=== PATIENT | female | born 1940 | race Hispanic/Latino ===

== ENCOUNTER 2017-08-28 11:41 | Emergency (ER) | payer OTHER, MEDICARE ==
[~2017-08-28 11:41] MED LIST: ALBU2.5V2 IH; ALBU8.5H8 IH; AMLO5TAB2 PO; CARV3.12 PO; CYCL30DR OP; FLUT1BLS IH; MIRT15TA6 PO; MONT10TA24 PO; MULT-1192 PO; RANI-257 PO; TRAM50TA4 PO
[2017-08-28 13:10] LABS: BASOPHILS % (AUTO) 0.4 % (0.0-5.0); EOSINOPHILS % (AUTO) 0.5 % (0.0-8.0); HEMATOCRIT 33.9 % (36-48); LYMPHOCYTES % (AUTO) 6.5 % (21.0-51.0); MEAN CORPUSCULAR HEMOGLOBIN 33.1 pg (27.0-33.0); MEAN CORPUSCULAR HGB CONC 34.1 g/dL (32.0-36.0); MEAN CORPUSCULAR VOLUME 97.1 fL (79-99); MONOCYTES % (AUTO) 3.8 % (3.0-13.0); NEUTROPHILS % (AUTO) 88.8 % (40.0-77.0); PLATELET COUNT (AUTO) 223 K/uL (130-400); RED BLOOD CELL COUNT(AUTO) 3.49 MIL/uL (4.00-5.50); RED CELL DISTRIBUTION WIDTH 12.6 % (11.0-15.5); WHITE BLOOD COUNT (AUTO) 11.4 K/uL (4.8-10.8)
[2017-08-28 13:25] LABS: ALBUMIN 3.2 g/dL (3.5-5.0); BILIRUBIN,TOTAL 0.5 mg/dL (0.2-1.0); TOTAL PROTEIN, SERUM 7.3 g/dL (6.0-8.3)
[2017-08-28 13:53] LABS: APPEARANCE,URINE CLEAR (CLEAR); BILIRUBIN,URINE NEGATIVE (NEGATIVE); COLOR,URINE YELLOW (YELLOW); GLUCOSE, URINE (UA) NEGATIVE (NEGATIVE); KETONES,URINE NEGATIVE (NEGATIVE); LEUKOCYTE ESTERASE ,URINE NEGATIVE (NEGATIVE); NITRATE,URINE NEGATIVE (NEGATIVE); OCCULT BLOOD,URINE NEGATIVE (NEGATIVE); PROTEIN,URINE NEGATIVE (NEGATIVE); UROBILINOGEN,URINE 0.2 mg/dL (0.2-1.0)
[2017-08-28] MEDS ORDERED: METRONIDAZOLE 500MG/100ML BAG 100 ML ONE (15:55)
[2017-08-28] MEDS ORDERED: LEVOFLOXACIN 750 MG/D5W 150 ML 150 ML ONE (16:42)
== END 2017-08-28 18:12 | disposition home or self-care (01) ==
LOC: EDH 11:41
DX: K57.92 Diverticulitis of intestine, part unspecified, without perforation or abscess without bleeding (principal); I10 Essential (primary) hypertension; E78.5 Hyperlipidemia, unspecified; J45.909 Unspecified asthma, uncomplicated; Z90.49 Acquired absence of other specified parts of digestive tract
CPT/HCPCS: 36415; 71045; 74176; 80053; 81003; 85025; 87804 ×2; 96365; 96367; 99285; J1956; J3490

== ENCOUNTER 2017-08-29 23:48 | Observation (INO) | payer OTHER, MEDICARE ==
[~2017-08-29] VITALS: Ht 157.5 cm; Wt 56.7 kg
[2017-08-30 00:35] LABS: BASOPHILS % (AUTO) 0.3 % (0.0-5.0); EOSINOPHILS % (AUTO) 1.2 % (0.0-8.0); HEMATOCRIT 33.7 % (36-48); LYMPHOCYTES % (AUTO) 10.2 % (21.0-51.0); MEAN CORPUSCULAR HEMOGLOBIN 33.6 pg (27.0-33.0); MEAN CORPUSCULAR HGB CONC 34.8 g/dL (32.0-36.0); MEAN CORPUSCULAR VOLUME 96.7 fL (79-99); MONOCYTES % (AUTO) 6.4 % (3.0-13.0); NEUTROPHILS % (AUTO) 81.9 % (40.0-77.0); PLATELET COUNT (AUTO) 183 K/uL (130-400); RED BLOOD CELL COUNT(AUTO) 3.48 MIL/uL (4.00-5.50); RED CELL DISTRIBUTION WIDTH 12.6 % (11.0-15.5); WHITE BLOOD COUNT (AUTO) 10.4 K/uL (4.8-10.8)
[2017-08-30 00:42] LABS: CREATININE 1.3 mg/dL (0.5-1.5); POTASSIUM 3.8 mmol/L (3.5-5.1)
[2017-08-30 00:45] LABS: APPEARANCE,URINE Clear (CLEAR); BILIRUBIN,URINE Negative (NEGATIVE); COLOR,URINE Yellow (YELLOW); GLUCOSE, URINE (UA) Negative (NEGATIVE); KETONES,URINE Negative (NEGATIVE); LEUKOCYTE ESTERASE ,URINE Negative (NEGATIVE); NITRATE,URINE Negative (NEGATIVE); OCCULT BLOOD,URINE Negative (NEGATIVE); PROTEIN,URINE Negative (NEGATIVE); UROBILINOGEN,URINE 0.2 mg/dL (0.2-1.0)
[2017-08-30 00:47] LABS: ALBUMIN 3.4 g/dL (3.5-5.0); BILIRUBIN,DIRECT 0.1 mg/dL (0.0-0.3); BILIRUBIN,TOTAL 0.6 mg/dL (0.2-1.0); TOTAL PROTEIN, SERUM 7.5 g/dL (6.0-8.3)
[2017-08-30] MEDS ORDERED: SODIUM CHLORIDE 0.9% 1000ML 1,000 ML IV ONE (01:39)
[2017-08-30] MEDS ORDERED: ONDANSETRON HCL 4 MG/2 ML VIAL ONE ×2 (01:39→03:32)
[2017-08-30] MEDS ORDERED: LIDOCAINE HCL 2% VISCOUS 15 ML UDCUP ONE (01:54)
[2017-08-30] MEDS ORDERED: MAGNESIUM HYDROXIDE 30 ML/UDCUP ONE (01:54)
[2017-08-30] MEDS ORDERED: METRONIDAZOLE 500MG/100ML BAG 100 ML ONE (04:34)
[2017-08-30 05:30] VITALS: BP 194/85
[2017-08-30 05:39] LABS: HEMATOCRIT 32.6 % (36-48); MEAN CORPUSCULAR HEMOGLOBIN 33.7 pg (27.0-33.0); MEAN CORPUSCULAR HGB CONC 35.1 g/dL (32.0-36.0); PLATELET COUNT (AUTO) 225 K/uL (130-400); RED BLOOD CELL COUNT(AUTO) 3.39 MIL/uL (4.00-5.50); RED CELL DISTRIBUTION WIDTH 12.5 % (11.0-15.5); WHITE BLOOD COUNT (AUTO) 8.4 K/uL (4.8-10.8)
[2017-08-30 05:44] LABS: CREATININE 1.1 mg/dL (0.5-1.5); POTASSIUM 3.9 mmol/L (3.5-5.1)
[2017-08-30] MEDS: SODIUM CHLORIDE 0.9% 1000ML 1,000 ML IV SCH ×2 (05:58→19:09)
[2017-08-30] MEDS ORDERED: MORPHINE SULFATE 2 MG/ML 1ML SYG IVP PRN (06:00)
[2017-08-30] MEDS ORDERED: ONDANSETRON HCL 4 MG/2 ML VIAL IVP PRN (06:00)
[2017-08-30] MEDS ORDERED: PHARMACY COMMUNICATION MISC SCH (06:00)
[2017-08-30] MEDS ORDERED: METRONIDAZOLE 500MG/100ML BAG 100 ML IVPB SCH (06:00)
[2017-08-30] MEDS ORDERED: FLU VACC QS2017-18 36MOS UP/PF 60 MCG/0.5 ML ML IM SCH (06:30)
[2017-08-30] MEDS ORDERED: POTASSIUM CHLORIDE 20MEQ/100ML 100 ML IV PRN (06:45)
[2017-08-30] MEDS ORDERED: POTASSIUM CHLORIDE 20 MEQ ERTAB PO PRN (06:45)
[2017-08-30] MEDS ORDERED: LIDOCAINE HCL-MPF 1% 2ML VIAL IVP PRN (06:45)
[2017-08-30] MEDS ORDERED: MEROPENEM 500 MG VIAL IVP SCH ×2 (06:45)
[2017-08-30] MEDS ORDERED: POTASSIUM CHLORIDE 10% ELIXIR 20 MEQ/15 ML UDCUP PO PRN (06:45)
[2017-08-30 07:00] VITALS: BP 157/83
[2017-08-30] MEDS: FAMOTIDINE/PF 20 MG/2 ML VIAL IV SCH (09:13)
[2017-08-30 11:00] VITALS: BP 171/77
[2017-08-30] MEDS ORDERED: MEROPENEM 500MG+NS 50ML 50 ML IV SCH (14:00)
[2017-08-30] MEDS: MEROPENEM 500 MG VIAL IVP SCH ×2 (14:19→20:22)
[2017-08-30 17:58] VITALS: BP 147/71
[2017-08-30 19:10] VITALS: BP 178/78
[2017-08-30] MEDS ORDERED: HYDRALAZINE HCL 20 MG/ML VIAL IV PRN (20:45)
[2017-08-30 23:47] VITALS: BP 132/59
[2017-08-31] MEDS: SODIUM CHLORIDE 0.9% 1000ML 1,000 ML IV SCH (00:21)
[2017-08-31 04:04] VITALS: BP 139/65
[2017-08-31] MEDS: MEROPENEM 500 MG VIAL IVP SCH ×2 (06:06→15:27)
[2017-08-31] MEDS: FAMOTIDINE/PF 20 MG/2 ML VIAL IV SCH (09:04)
[2017-08-31] MEDS ORDERED: LOSA100T29 PO (09:12)
[2017-08-31] MEDS ORDERED: ALBU2.5V2 IH (09:12)
[2017-08-31] MEDS ORDERED: MIRT30TA6 PO (09:12)
[2017-08-31 09:56] VITALS: BP 146/71
[2017-08-31] MEDS ORDERED: AMOX-426 PO (10:28)
[2017-08-31 13:21] VITALS: BP 130/66
== END 2017-08-31 17:42 | disposition home or self-care (01) ==
LOC: EDH 23:48 → EDHIP 08-30 04:19 → 3DH 08-30 04:35
PROVIDERS: ADMIT Family Medicine; ATTEND Family Medicine
DX: K57.32 Diverticulitis of large intestine without perforation or abscess without bleeding (principal); I10 Essential (primary) hypertension; K21.9 Gastro-esophageal reflux disease without esophagitis; J45.909 Unspecified asthma, uncomplicated; E78.5 Hyperlipidemia, unspecified; Z82.49 Family history of ischemic heart disease and other diseases of the circulatory system; Z82.5 Family history of asthma and other chronic lower respiratory diseases; Z90.49 Acquired absence of other specified parts of digestive tract
CPT/HCPCS: 36415; 80048 ×2; 80076; 81003; 82550; 83690; 84484; 85025; 85027; 93005; 96361 ×2; 96374; 97116; 97161; 99285; A4218 ×4; A4510; G0378 ×37; G8978; G8979; G8980; G8981; G8982; G8983; J0360; J2185 ×4; J2405 ×2; J3490 ×3; J7030 ×3

== ENCOUNTER 2018-04-10 04:39 | Emergency (ER) | payer OTHER, MEDICARE ==
[~2018-04-10 04:39] MED LIST changes: -ALBU8.5H8 IH; -AMLO5TAB2 PO; +AMOX-426 PO; -CARV3.12 PO; +LOSA100T20 PO; -MIRT15TA6 PO; +MIRT30TA6 PO
[2018-04-10] MEDS ORDERED: ORPHENADRINE CITRATE 30 MG/ML ML ONE (05:40)
[2018-04-10] MEDS ORDERED: DEXAMETHASONE SOD PHOSPHATE 4 MG/ML 1ML VIAL ONE (05:40)
[2018-04-10] MEDS ORDERED: MORPHINE SULFATE 4 MG/1ML SYG ONE (05:41)
== END 2018-04-10 06:48 | disposition home or self-care (01) ==
LOC: EDH 04:39
DX: M54.41 Lumbago with sciatica, right side (principal); M16.11 Unilateral primary osteoarthritis, right hip; E78.5 Hyperlipidemia, unspecified; I10 Essential (primary) hypertension; F32.9 Major depressive disorder, single episode, unspecified; Z88.8 Allergy status to other drugs, medicaments and biological substances; Z90.49 Acquired absence of other specified parts of digestive tract; Z90.710 Acquired absence of both cervix and uterus; Z98.890 Other specified postprocedural states
CPT/HCPCS: 96372 ×3; 99284; J1100; J2270; J2360

== ENCOUNTER 2018-05-08 10:21 | Emergency (ER) | payer OTHER, MEDICARE ==
[2018-05-08 11:21] LABS: BASOPHILS % (AUTO) 0.7 % (0.0-5.0); EOSINOPHILS % (AUTO) 1.3 % (0.0-8.0); HEMATOCRIT 30.4 % (36-48); LYMPHOCYTES % (AUTO) 11.7 % (21.0-51.0); MEAN CORPUSCULAR HGB CONC 34.8 g/dL (32.0-36.0); MEAN CORPUSCULAR VOLUME 97.6 fL (79-99); MONOCYTES % (AUTO) 5.5 % (3.0-13.0); NEUTROPHILS % (AUTO) 80.8 % (40.0-77.0); PLATELET COUNT (AUTO) 180 K/uL (130-400); RED BLOOD CELL COUNT(AUTO) 3.12 MIL/uL (4.00-5.50); RED CELL DISTRIBUTION WIDTH 12.6 % (11.0-15.5); WHITE BLOOD COUNT (AUTO) 6.6 K/uL (4.8-10.8)
[2018-05-08 11:27] LABS: CREATININE 0.9 mg/dL (0.5-1.5)
[2018-05-08 11:31] LABS: ALBUMIN 3.1 g/dL (3.5-5.0); BILIRUBIN,DIRECT 0.1 mg/dL (0.0-0.3); BILIRUBIN,TOTAL 0.5 mg/dL (0.2-1.0); TOTAL PROTEIN, SERUM 6.2 g/dL (6.0-8.3)
[2018-05-08 12:17] LABS: APPEARANCE,URINE Clear (CLEAR); BILIRUBIN,URINE Negative (NEGATIVE); COLOR,URINE Yellow (YELLOW); GLUCOSE, URINE (UA) Negative (NEGATIVE); KETONES,URINE Trace mg/dL (NEGATIVE); LEUKOCYTE ESTERASE ,URINE Negative (NEGATIVE); NITRATE,URINE Negative (NEGATIVE); OCCULT BLOOD,URINE Negative (NEGATIVE); PROTEIN,URINE Negative (NEGATIVE); UROBILINOGEN,URINE 0.2 mg/dL (0.2-1.0)
[2018-05-08 12:34] LABS: BACTERIA,URINE Rare /HPF (None Seen); RBC,URINE None Seen /HPF (0-1); SQUAMOUS EPITHELIAL CELL,UR Rare /HPF (0-2); WBC,URINE None Seen /HPF (0-1)
== END 2018-05-08 13:40 | disposition home or self-care (01) ==
LOC: EDH 10:21
DX: F32.9 Major depressive disorder, single episode, unspecified (principal); R53.83 Other fatigue; I10 Essential (primary) hypertension; E78.5 Hyperlipidemia, unspecified; Z98.890 Other specified postprocedural states
CPT/HCPCS: 36415; 71045; 80048; 80076; 81001; 82550; 84484; 85025; 87804; 93005

== ENCOUNTER 2019-01-24 10:27 | Day surgery (SDC) | payer OTHER, MEDICARE ==
[2019-01-23 13:52] VITALS: BP 160/80
[2019-01-23 13:58] LABS: EOSINOPHILS % (AUTO) 2.5 % (0.0-8.0); HEMATOCRIT 36.6 % (36-48); LYMPHOCYTES % (AUTO) 12.8 % (21.0-51.0); MEAN CORPUSCULAR HEMOGLOBIN 32.7 pg (27.0-33.0); MEAN CORPUSCULAR HGB CONC 32.9 g/dL (32.0-36.0); MEAN CORPUSCULAR VOLUME 99.4 fL (79-99); MONOCYTES % (AUTO) 6.9 % (3.0-13.0); NEUTROPHILS % (AUTO) 76.8 % (40.0-77.0); PLATELET COUNT (AUTO) 222 K/uL (130-400); RED BLOOD CELL COUNT(AUTO) 3.69 MIL/uL (4.00-5.50); RED CELL DISTRIBUTION WIDTH 12.9 % (11.0-15.5); WHITE BLOOD COUNT (AUTO) 6.5 K/uL (4.8-10.8)
[2019-01-23 14:07] LABS: CREATININE 1.1 mg/dL (0.5-1.5); POTASSIUM 4.5 mmol/L (3.5-5.1)
[~2019-01-24] VITALS: Ht 152.4 cm; Wt 51.3 kg
[2019-01-24] VITALS (18 sets, daily range): BP systolic 127–180; BP diastolic 49–84
[2019-01-24] MEDS: CEFAZOLIN SODIUM 1 GM VIAL IVP ONE ×2 (08:00→16:24)
[~2019-01-24 10:27] MED LIST changes: -AMOX-426 PO; -CYCL30DR OP; +ERGO400C PO; +LACTATED RINGERS 1000ML 1,000 ML IV SCH; -LOSA100T20 PO; +LOSA100T58 PO; -MONT10TA24 PO; -MULT-1192 PO; -RANI-257 PO; +RANI-379 PO
[2019-01-24] MEDS ORDERED: CEFAZOLIN SODIUM 1 GM VIAL ONE (11:04)
[2019-01-24] MEDS ORDERED: ROCURONIUM 10MG/1ML SYR 10 MG/ML ML ONE (13:14)
[2019-01-24] MEDS ORDERED: SUCCINYLCHOLINE 200MG/10ML SYR ONE (13:14)
[2019-01-24] MEDS ORDERED: PROPOFOL 10 MG/ML 20ML VIAL IV ONE (13:14)
[2019-01-24] MEDS ORDERED: LIDOCAINE PF 2% 5ML ABBOJECT ONE (13:14)
[2019-01-24] MEDS ORDERED: FENTANYL CITRATE PF 50 MCG/1 ML 2ML VIAL ONE ×2 (13:15→15:32)
[2019-01-24] MEDS ORDERED: ROPIVACAINE 0.5% 5MG/ML 30ML IJ ONE (13:17)
[2019-01-24] MEDS ORDERED: EPINEPHRINE 1 MG/ML 30ML VIAL IJ ONE (15:35)
[2019-01-24] MEDS ORDERED: ONDANSETRON HCL 4 MG/2 ML VIAL ONE (16:48)
[2019-01-24] MEDS ORDERED: NEOSTIGMINE 5MG/5ML SYR IV ONE (16:57)
[2019-01-24] MEDS ORDERED: GLYCOPYRROLATE 1 MG/5 ML SYRINGE ONE (16:57)
[2019-01-24] MEDS ORDERED: HYDRALAZINE HCL 20 MG/ML VIAL ONE (17:44)
--- NOTE | 2019-01-24 18:20 | NUR ---
INCISION CARE ASKED DR. DE GUZMAN RE: DRESSING. PER DR. DE GUZMAN, KEEP DRESSING DRY AND CLEAN, DO NOT REMOVE.
--- NOTE | 2019-01-24 18:26 | NUR ---
RECEIVE PT RECEIVED FROM PACU VIA STRETCHER AWAKE ALERT ORIENTED X3. PT STABLE. RIGHT SHOULDER DRESSING DRY AND INTACT, NO BLEEDING NOTED, SITE NO SWELLING NO REDNESS NOTED. ICE PACK APPLIED TO SITE. RIGHT SHOULDER SLING/IMMOBILIZER IN PLACE, RIGHT ARM SENSATION INTACT, VERY MINIMAL MOVEMENTS NOTED TO FINGERS,RT, CAPILLARY REFILLS BRISK, PULSES PRESENT. PT KEPT ON SEMI VALENCIA'S POSITION. CALL GREEN WITHIN REACH, WILL CALL FOR TO COME IN TO ROOM.
--- NOTE | 2019-01-24 19:10 | NUR ---
DISCHARGE PT DISCHARGED VIA WHEELCHAIR WITH . PT STABLE. NO COMPLAINTS MADE. NOT IN ANY APPARENT DISTRESS. TOLERATED ORAL FLUIDS WELL. DRESSING TO RIGHT SHOULDER REMAINS DRY AND INTACT, NO BLEEDING, NO SWELLING NOTED. SLING RT ARM IN PLACE. DISCHARGE INSTRUCTIONS GIVEN TO , VERBALIZED UNDERSTANDING.
== END 2019-01-24 19:10 | disposition home or self-care (01) ==
LOC: DAH 10:27
PROVIDERS: ATTEND Orthopaedic Surgery
DX: M75.101 Unspecified rotator cuff tear or rupture of right shoulder, not specified as traumatic (principal); Z90.49 Acquired absence of other specified parts of digestive tract; Z98.890 Other specified postprocedural states; Z90.710 Acquired absence of both cervix and uterus; Z88.8 Allergy status to other drugs, medicaments and biological substances; J45.909 Unspecified asthma, uncomplicated; K21.9 Gastro-esophageal reflux disease without esophagitis; K59.00 Constipation, unspecified; M19.90 Unspecified osteoarthritis, unspecified site; R53.1 Weakness; I11.9 Hypertensive heart disease without heart failure
CPT/HCPCS: 23130; 23412; 36415; 71045; 80048; 85025; 93005; A4452; A4649 ×4; A4930; A6223; C1713 ×2; J0171; J0330; J0360; J0690; J2001; J2405; J2704; J2710; J2795; J3010; J3490; J7030; J7120

== ENCOUNTER 2019-01-25 18:24 | Emergency (ER) | payer OTHER, MEDICARE ==
[~2019-01-25 18:24] MED LIST changes: -LACTATED RINGERS 1000ML 1,000 ML IV SCH
[2019-01-25 18:57] LABS: BASOPHILS % (AUTO) 0.5 % (0.0-5.0); EOSINOPHILS % (AUTO) 1.1 % (0.0-8.0); HEMATOCRIT 36.3 % (36-48); LYMPHOCYTES % (AUTO) 10.1 % (21.0-51.0); MEAN CORPUSCULAR HEMOGLOBIN 32.5 pg (27.0-33.0); MEAN CORPUSCULAR HGB CONC 33.1 g/dL (32.0-36.0); MEAN CORPUSCULAR VOLUME 98.2 fL (79-99); MONOCYTES % (AUTO) 7.5 % (3.0-13.0); NEUTROPHILS % (AUTO) 80.8 % (40.0-77.0); PLATELET COUNT (AUTO) 216 K/uL (130-400); RED BLOOD CELL COUNT(AUTO) 3.69 MIL/uL (4.00-5.50); WHITE BLOOD COUNT (AUTO) 11.6 K/uL (4.8-10.8)
[2019-01-25 19:13] LABS: CARBON DIOXIDE 30 mmol/L (21-32); CHLORIDE 99 mmol/L (101-111); CREATININE 1.3 mg/dL (0.5-1.5); GLOMERULAR FILTR. RATE CALC 42 mL/min (>60); GLUCOSE,RANDOM 110 mg/dL (70-105); SODIUM SERUM 135 mmol/L (136-145); UREA NITROGEN, BLOOD 35 mg/dL (7-18)
[2019-01-25 19:17] LABS: ALANINE AMINOTRANSFERASE 21 U/L (12-78); ALBUMIN 3.6 g/dL (3.5-5.0); ASPARTATE AMINOTRANSFERASE 23 U/L (10-37); BILIRUBIN,TOTAL 0.3 mg/dL (0.2-1.0); CREATINE KINASE, TOTAL 126 U/L (21-232); LIPASE 166 U/L (114-286); TOTAL PROTEIN, SERUM 7.6 g/dL (6.0-8.3)
[2019-01-25 19:20] LABS: CRP QUANTITATIVE < 2.00 mg/L (0.00-9.0)
[2019-01-25 19:29] LABS: INR 0.93 (0.85-1.15); PARTIAL THROMBOPLASTIN TIME 27.3 SEC (26.3-35.5); PROTHROMBIN TIME 9.8 SEC (9.6-11.6)
[2019-01-25] MEDS ORDERED: KETOROLAC TROMETHAMINE 15MG/ML ONE (20:02)
[2019-01-25 20:03] LABS: ERYTHROCYTE SEDIMENTATION RATE 26 MM/HR (0-30)
[2019-01-25] MEDS ORDERED: SODIUM CHLORIDE 0.9% 1000ML 1,000 ML IV ONE (20:03)
[2019-01-25 21:50] LABS: APPEARANCE,URINE Clear (CLEAR); BILIRUBIN,URINE Negative (NEGATIVE); COLOR,URINE Yellow (YELLOW); GLUCOSE, URINE (UA) Negative (NEGATIVE); KETONES,URINE Negative (NEGATIVE); LEUKOCYTE ESTERASE ,URINE Negative (NEGATIVE); NITRATE,URINE Negative (NEGATIVE); OCCULT BLOOD,URINE Negative (NEGATIVE); PH,URINE 5.5 (5.0-8.0); PROTEIN,URINE Negative (NEGATIVE); UROBILINOGEN,URINE 0.2 mg/dL (0.2-1.0)
== END 2019-01-25 22:33 | disposition home or self-care (01) ==
LOC: EDH 18:24
DX: S46.811A Strain of other muscles, fascia and tendons at shoulder and upper arm level, right arm, initial encounter (principal); I10 Essential (primary) hypertension; R42 Dizziness and giddiness; X58.XXXA Exposure to other specified factors, initial encounter; Y93.89 Activity, other specified; Y92.89 Other specified places as the place of occurrence of the external cause; Y99.8 Other external cause status
CPT/HCPCS: 36415; 71045; 73020; 80053; 81003; 82550; 83605; 83690; 84484; 85025; 85610; 85651; 85730; 86140; 87040 ×2; 93005; 96361; 96374; 99285; J1885; J7030

== ENCOUNTER 2019-01-26 11:15 | Observation (INO) | payer OTHER, MEDICARE ==
[~2019-01-26] VITALS: Ht 149.9 cm; Wt 45.4 kg
[2019-01-26] MEDS ORDERED: SODIUM CHLORIDE 0.9% 1000ML 1,000 ML IV ONE (12:54)
[2019-01-26 12:57] LABS: INR 0.9 (0.85-1.15); PARTIAL THROMBOPLASTIN TIME 29.4 SEC (26.3-35.5); PROTHROMBIN TIME 9.5 SEC (9.6-11.6)
[2019-01-26 12:59] LABS: CREATININE 1.1 mg/dL (0.5-1.5); POTASSIUM 3.7 mmol/L (3.5-5.1)
[2019-01-26 13:03] LABS: ALBUMIN 3.2 g/dL (3.5-5.0); BILIRUBIN,DIRECT 0.1 mg/dL (0.0-0.3); BILIRUBIN,TOTAL 0.4 mg/dL (0.2-1.0); TOTAL PROTEIN, SERUM 7.4 g/dL (6.0-8.3)
[2019-01-26 13:05] LABS: BASOPHILS % (AUTO) 0.2 % (0.0-5.0); EOSINOPHILS % (AUTO) 0.5 % (0.0-8.0); HEMATOCRIT 35.8 % (36-48); LYMPHOCYTES % (AUTO) 4.2 % (21.0-51.0); MEAN CORPUSCULAR HEMOGLOBIN 33.1 pg (27.0-33.0); MEAN CORPUSCULAR HGB CONC 33.7 g/dL (32.0-36.0); MEAN CORPUSCULAR VOLUME 98.2 fL (79-99); MONOCYTES % (AUTO) 7.5 % (3.0-13.0); NEUTROPHILS % (AUTO) 87.6 % (40.0-77.0); PLATELET COUNT (AUTO) 201 K/uL (130-400); RED BLOOD CELL COUNT(AUTO) 3.64 MIL/uL (4.00-5.50); WHITE BLOOD COUNT (AUTO) 9.7 K/uL (4.8-10.8)
[2019-01-26 14:03] LABS: APPEARANCE,URINE Clear (CLEAR); BILIRUBIN,URINE Negative (NEGATIVE); COLOR,URINE Yellow (YELLOW); GLUCOSE, URINE (UA) Negative (NEGATIVE); KETONES,URINE Negative (NEGATIVE); LEUKOCYTE ESTERASE ,URINE Negative (NEGATIVE); NITRATE,URINE Negative (NEGATIVE); OCCULT BLOOD,URINE Negative (NEGATIVE); PH,URINE 6.5 (5.0-8.0); PROTEIN,URINE Negative (NEGATIVE); UROBILINOGEN,URINE 0.2 mg/dL (0.2-1.0)
--- NOTE | 2019-01-26 16:16 | NUR ---
REPORT RECEIVED FROM SABINA RAMACHANDRAN (ED). PATIENT ADMITTED UNDER DR. LOPEZ'S SERVICES FOR S/P FALL AND GENERALIZED WEAKNESS. DR. DE GUZMAN CONSULTED. PATIENT S/P RIGHT ROTATOR CUFF REPAIR BY DR. DE GUZMAN ON 01/24/19. PATIENT REFUSES TO WEAR ABDUCTION PILLOW TO RIGHT ARM. PATIENT WITH C/O FEVER AND HYPERTENSION. PER MADIE, DR. YEPEZ SPOKE TO DR. DE GUZMAN AND IS AWARE OF CONSULT. PATIENT STABLE AT THIS TIME.
[2019-01-26] MEDS ORDERED: SODIUM CHLORIDE 0.9% 1000ML 1,000 ML IV SCH (16:45)
[2019-01-26] MEDS ORDERED: ACETAMINOPHEN 325 MG TAB PO PRN (16:45)
[2019-01-26] MEDS ORDERED: ONDANSETRON HCL 4 MG/2 ML VIAL IVP PRN (16:45)
[2019-01-26 17:30] VITALS: BP 162/77
[2019-01-26] MEDS: TRAMADOL HCL 50 MG TABLET PO PRN (19:01)
[2019-01-26 19:30] VITALS: BP 172/79
[2019-01-26] MEDS ORDERED: MORPHINE SULFATE 2 MG/ML 1ML SYG IVP PRN (20:30)
[2019-01-26] MEDS ORDERED: ZOSYN 3.375GM+NS 50ML 50 ML IV SCH (21:00)
[2019-01-27 00:10] VITALS: BP 161/77
[2019-01-27 04:30] VITALS: BP 177/79
[2019-01-27 07:30] VITALS: BP 163/87
[2019-01-27] MEDS: TRAMADOL HCL 50 MG TABLET PO PRN (07:42)
[2019-01-27 11:00] VITALS: BP 170/88
--- NOTE | 2019-01-27 12:23 | NUR ---
DISCHARGE PATIENT GIVEN DISCHARGE INSTRUCTIONS VIA TEACH BACK. 20G PIV TO LAC DISCONTINUED WITH TIP INTACT. NO RX GIVEN. PATIENT TO KEEP FOLLOW UP APPOINTMENT WITH PCP FOR NEW REFERRAL IN ORDER TO FOLLOW UP WITH DR. DE GUZMAN IN 2 WEEKS. PATIENT STABLE AT THIS TIME. PATIENT WHEELED DOWNSTAIRS TO LOBBY BY MINO DAVIS ACCOMPANIED BY SPOUSE.
== END 2019-01-27 12:30 | disposition home or self-care (01) ==
LOC: EDH 11:15 → EDHIP 16:05 → INTOOBSV 16:05 → OBSVTOIN 16:05 → 3BH 16:56
PROVIDERS: ADMIT Internal Medicine Critical Care Medicine; ATTEND Internal Medicine Critical Care Medicine
DX: R53.1 Weakness (principal); I10 Essential (primary) hypertension; Z79.899 Other long term (current) drug therapy; Z79.51 Long term (current) use of inhaled steroids
CPT/HCPCS: 36415; 71045; 80048; 80076; 82550; 83605; 83690; 84484; 85025; 85610; 85730; 87040; 87804 ×2; 93005; 96365; 96366; 96375; 99285; G0378 ×20; J2543 ×2; J7030 ×2; J0171; J0330; J0360; J0690; J2001; J2405; J2704; J2710; J2795; J3010; J3490; J7120

== ENCOUNTER 2020-10-30 10:57 | Emergency (ER) | payer OTHER, MEDICARE ==
[2020-10-30 11:41] LABS: BASOPHILS % (AUTO) 0.8 % (0.0-5.0); EOSINOPHILS % (AUTO) 4.3 % (0.0-8.0); LYMPHOCYTES % (AUTO) 11.6 % (21.0-51.0); MEAN CORPUSCULAR HEMOGLOBIN 32.2 pg (27.0-33.0); MEAN CORPUSCULAR HGB CONC 33.3 g/dL (32.0-36.0); MEAN CORPUSCULAR VOLUME 96.5 fL (79-99); PLATELET COUNT (AUTO) 220 K/uL (130-400); RED BLOOD CELL COUNT(AUTO) 3.73 MIL/uL (4.00-5.50); RED CELL DISTRIBUTION WIDTH 12.8 % (11.0-15.5); WHITE BLOOD COUNT (AUTO) 7.8 K/uL (4.8-10.8)
[2020-10-30] MEDS ORDERED: ALBUTEROL SULFATE 0.083% 2.5 MG/3 ML INH IH ONE (11:52)
[2020-10-30 11:55] LABS: CREATININE 1.2 mg/dL (0.5-1.5); POTASSIUM 4.4 mmol/L (3.5-5.1)
[2020-10-30 12:01] LABS: ALBUMIN 3.6 g/dL (3.5-5.0); BILIRUBIN,TOTAL 0.4 mg/dL (0.2-1.0)
[2020-10-30 15:19] LABS: APPEARANCE,URINE Clear (CLEAR); BILIRUBIN,URINE Negative (NEGATIVE); COLOR,URINE Yellow (YELLOW); GLUCOSE, URINE (UA) Negative (NEGATIVE); KETONES,URINE 15 mg/dL (NEGATIVE); LEUKOCYTE ESTERASE ,URINE Trace (NEGATIVE); NITRATE,URINE Negative (NEGATIVE); OCCULT BLOOD,URINE Negative (NEGATIVE); PROTEIN,URINE Negative (NEGATIVE)
[2020-10-30 15:42] LABS: BACTERIA,URINE Rare /HPF (None Seen); MUCUS,URINE Few LPF (None Seen); SQUAMOUS EPITHELIAL CELL,UR Few /HPF (0-2)
== END 2020-10-30 18:05 | disposition home or self-care (01) ==
LOC: EDH 10:57
DX: G93.3 Postviral and related fatigue syndromes (principal); I10 Essential (primary) hypertension; E78.5 Hyperlipidemia, unspecified; M81.0 Age-related osteoporosis without current pathological fracture; F32.9 Major depressive disorder, single episode, unspecified; Z88.1 Allergy status to other antibiotic agents; Z98.890 Other specified postprocedural states
CPT/HCPCS: 36415; 71045; 80053; 81001; 83605; 85025; 87040; 93005; 94640

== ENCOUNTER 2023-08-31 11:05 | Emergency (ER) | payer OTHER, MEDICARE ==
[~2023-08-31] VITALS: Ht 154.9 cm; Wt 62.6 kg
[~2023-08-31 11:05] MED LIST changes: +DICL20GE TP; -LOSA100T58 PO; +LOSA100T59 PO; +MIRT-93 PO; -MIRT30TA6 PO; +PRED20TA3 PO
[2023-08-31 11:37] LABS: BASOPHILS # (AUTO) 0.07 K/uL (0.00-0.20); BASOPHILS % (AUTO) 0.8 % (0.0-5.0); EOSINOPHILS # (AUTO) 0.24 K/uL (0.00-0.70); EOSINOPHILS % (AUTO) 2.6 % (0.0-8.0); IMMATURE GRANULOCYTE ABSOLUTE 0.02 K/uL (0-1); LYMPHOCYTES % (AUTO) 11.2 % (21.0-51.0); MEAN CORPUSCULAR HGB CONC 33.2 g/dL (32.0-36.0); MEAN CORPUSCULAR VOLUME 93.4 fL (79-99); MONOCYTES # (AUTO) 0.5 K/uL (0.1-1.0); MONOCYTES % (AUTO) 5.5 % (3.0-13.0); NEUTROPHILS # (AUTO) 7.4 K/uL (1.8-7.7); NEUTROPHILS % (AUTO) 79.7 % (40.0-77.0); PLATELET COUNT (AUTO) 301 K/uL (130-400); RED BLOOD CELL COUNT(AUTO) 3.64 MIL/uL (4.00-5.50); RED CELL DISTRIBUTION WIDTH 13.7 % (11.0-15.5); WHITE BLOOD COUNT (AUTO) 9.3 K/uL (4.8-10.8)
[2023-08-31 11:53] LABS: ALBUMIN 3.5 g/dL (3.5-5.0); BILIRUBIN,TOTAL 0.3 mg/dL (0.2-1.0); CREATININE 1.6 mg/dL (0.5-1.5); POTASSIUM 3.6 mmol/L (3.5-5.1); TOTAL PROTEIN, SERUM 8.2 g/dL (6.0-8.3)
[2023-08-31] MEDS: DEXAMETHASONE SOD PHOSPHATE 4 MG/ML 1ML VIAL IM ONE (14:45)
[2023-08-31] MEDS ORDERED: METH4TAB3 PO (14:54)
[2023-08-31 15:09] VITALS: BP 135/78; PULSE 88; RESP 16; O2SAT 98
== END 2023-08-31 15:17 | disposition home or self-care (01) ==
LOC: EDH 11:05
DX: M13.812 Other specified arthritis, left shoulder (principal); M13.811 Other specified arthritis, right shoulder; I12.9 Hypertensive chronic kidney disease with stage 1 through stage 4 chronic kidney disease, or unspecified chronic kidney disease; N18.9 Chronic kidney disease, unspecified; K21.9 Gastro-esophageal reflux disease without esophagitis; F32.A Depression, unspecified; D63.8 Anemia in other chronic diseases classified elsewhere; J45.909 Unspecified asthma, uncomplicated; Z79.899 Other long term (current) drug therapy; Z98.890 Other specified postprocedural states
CPT/HCPCS: 99285; 71045; 84484; 80053; 83880; 85025; 36415; 96372; 93005; J1100

== ENCOUNTER 2024-03-20 22:46 | Emergency (ER) | payer OTHER, MEDICARE ==
[~2024-03-20 22:46] MED LIST changes: +METH4TAB3 PO
[2024-03-20] MEDS: HYDROcodone/APAP 5/325 1 TAB TABLET PO ONE (23:29)
[2024-03-21] MEDS ORDERED: ACET-2079 PO (02:01)
[2024-03-21 02:07] VITALS: BP 140/59; PULSE 70; RESP 18; TEMP 98.2; O2SAT 97
== END 2024-03-21 02:16 | disposition home or self-care (01) ==
LOC: EDH 22:46
DX: S80.01XA Contusion of right knee, initial encounter (principal); J45.909 Unspecified asthma, uncomplicated; F32.A Depression, unspecified; I10 Essential (primary) hypertension; K21.9 Gastro-esophageal reflux disease without esophagitis; Z79.899 Other long term (current) drug therapy; Z88.8 Allergy status to other drugs, medicaments and biological substances; Z98.890 Other specified postprocedural states; W01.0XXA Fall on same level from slipping, tripping and stumbling without subsequent striking against object, initial encounter; Y93.89 Activity, other specified; Y92.89 Other specified places as the place of occurrence of the external cause; Y99.8 Other external cause status
CPT/HCPCS: 29505; 73552; 73564

== ENCOUNTER 2024-04-11 09:01 | Emergency (ER) | payer OTHER, MEDICARE ==
[~2024-04-11] VITALS: Ht 152.4 cm; Wt 61.7 kg
[~2024-04-11 09:01] MED LIST changes: +ACET-2079 PO
[2024-04-11 09:08] VITALS: BP 143/61; PULSE 81; RESP 18; TEMP 98.2
[2024-04-11] MEDS: TRIAMCINOLONE ACETONIDE 40 MG/ML 1ML VIAL IM ONE (09:28)
[2024-04-11] MEDS ORDERED: DICL20GE TP (09:55)
== END 2024-04-11 10:15 | disposition home or self-care (01) ==
LOC: EDH 09:01
DX: M17.11 Unilateral primary osteoarthritis, right knee (principal); G89.29 Other chronic pain; M25.561 Pain in right knee; F32.A Depression, unspecified; I10 Essential (primary) hypertension; J45.909 Unspecified asthma, uncomplicated; K21.9 Gastro-esophageal reflux disease without esophagitis; Z79.1 Long term (current) use of non-steroidal anti-inflammatories (NSAID); Z79.51 Long term (current) use of inhaled steroids; Z79.52 Long term (current) use of systemic steroids; Z88.1 Allergy status to other antibiotic agents; Z98.890 Other specified postprocedural states
CPT/HCPCS: 99283; 29505; 73562; 96372; J3301

== ENCOUNTER 2024-05-29 18:26 | Emergency (ER) | payer OTHER, MEDICARE ==
[~2024-05-29] VITALS: Ht 152.4 cm; Wt 56.7 kg
[2024-05-29 19:18] LABS: BASOPHILS # (AUTO) 0.05 K/uL (0.00-0.20); BASOPHILS % (AUTO) 0.5 % (0.0-5.0); EOSINOPHILS # (AUTO) 0.13 K/uL (0.00-0.70); EOSINOPHILS % (AUTO) 1.4 % (0.0-8.0); HEMATOCRIT 34.7 % (36-48); IMMATURE GRANULOCYTE ABSOLUTE 0.03 K/uL (0-1); LYMPHOCYTES # (AUTO) 1.3 K/uL (1.0-4.8); LYMPHOCYTES % (AUTO) 13.3 % (21.0-51.0); MEAN CORPUSCULAR HEMOGLOBIN 30.5 pg (27.0-33.0); MEAN CORPUSCULAR HGB CONC 32.3 g/dL (32.0-36.0); MEAN CORPUSCULAR VOLUME 94.6 fL (79-99); MONOCYTES # (AUTO) 0.6 K/uL (0.1-1.0); MONOCYTES % (AUTO) 6.1 % (3.0-13.0); NEUTROPHILS # (AUTO) 7.4 K/uL (1.8-7.7); NEUTROPHILS % (AUTO) 78.4 % (40.0-77.0); PLATELET COUNT (AUTO) 212 K/uL (130-400); RED BLOOD CELL COUNT(AUTO) 3.67 MIL/uL (4.00-5.50); RED CELL DISTRIBUTION WIDTH 15.3 % (11.0-15.5); WHITE BLOOD COUNT (AUTO) 9.4 K/uL (4.8-10.8)
--- NOTE | 2024-05-29 19:21 | ERN ---
General Chief Complaint: Shortness of Breath Stated Complaint: SOB Time Seen by MD: 19:07 History of Present Illness Initial Comments Mrs. Liang is an 83-year-old female significant past medical history of essential hypertension, GERD, chronic pain, reactive airways disease who presents today with a chief complaint of shortness of breath. Patient after having additional history taken has been having poor appetite for several days. She also states that she has been having issues with weakness. states that patient was had an unintentional weight loss. Allergies: Coded Allergies: levofloxacin (Unverified Allergy, Mild, NAUSEA, 04/04/15) Home Meds Active Scripts Diclofenac Sodium (Voltaren Arthritis Pain) 1 % Gel..gram., 20 GM TP BID for 14 Days, #1 TUBE Prov:STEVE SHARMA MD 04/11/24 Acetaminophen with Codeine (Acetaminophen-Cod #3 Tablet) 300 Mg-30 Mg Tablet, 1 EACH PO BID for 5 Days, #10 TAB Prov:BRET RHODES 03/21/24 Methylprednisolone (Medrol) 4 Mg Tab.ds.pk, 4 MG PO AD, #1 UNIT Prov:LINDEN ANG NP 08/31/23 Diclofenac Sodium (Voltaren Arthritis Pain) 20 Gm Gel..gram., 20 GM TP 4 x daily, #300 GM Prov:WESLEY REYES 09/25/21 Prednisone (Prednisone) 20 Mg Tablet, 20 MG PO DAILY for 5 Days, #5 TAB Prov:WESLEY REYES 09/25/21 Reported Medications Tizanidine HCl (Tizanidine HCl) 2 Mg Tablet, 1 TAB PO HS for 30 Days, #30 TAB 0 Refills 05/29/24 Quetiapine Fumarate (Quetiapine Fumarate) 25 Mg Tablet, 1 TAB PO HS for 30 Days, #30 TAB 0 Refills 05/29/24 Mirtazapine (Mirtazapine) 30 Mg Tablet, 1 TAB PO HS for 30 Days, #30 TAB 0 Refills 05/29/24 Famotidine (Famotidine) 20 Mg Tablet, 1 TAB PO BID for 30 Days, #60 TAB 0 Refills 05/29/24 Albuterol Sulfate (Albuterol Sulfate) 2.5 Mg/3 Ml (0.083 %) Vial.neb, 1 VIAL NEB Q4HPRN PRN for wheezing, #150 ML 0 Refills 05/29/24 [Tramadol Hcl] No Conflict Check, 50 MG PO BID PRN for PAIN LEVEL 5 TO 10 05/29/24 Amlodipine Besylate (Amlodipine Besylate) 10 Mg Tablet, 1 TAB PO DAILY for 30 Days, #30 TAB 0 Refills 05/29/24 Cholecalciferol (Vitamin D3) (Vitamin D) 400 Unit Capsule, 400 UNIT PO DAILY, CAP 01/05/19 Albuterol Sulfate (Albuterol Sulfate) 2.5 Mg/3 Ml Vial.neb, 2.5 MG IH EVERY 6 HOURS PRN for SHORTNESS OF BREATH/WHEEZING, INH 08/31/17 Losartan Potassium (Losartan Potassium) 100 Mg Tablet, 100 MG PO AM, TAB 08/31/17 Mirtazapine (Mirtazapine) 30 Mg Tablet, 30 MG PO HS, TAB 08/31/17 Ranitidine HCl (Zantac 75) 75 Mg Tablet, 150 MG PO DAILY, TAB 01/30/16 Fluticasone/Vilanterol (Breo Ellipta 200-25 Mcg INH) 1 Each Blst.w.dev, 1 EACH IH DAILY 01/30/16 Tramadol Hcl (Tramadol HCl) 50 Mg Tablet, 50 MG PO BID PRN for PAIN, TAB 04/03/15 Past Medical History Past Medical History: Asthma, Depression, GERD, Hypertension Past Surgical History: Hysterectomy, Cholecystectomy, Other Surgical History Other: BACK Family History Family History: Negative Social History Social History: Negative Female( History) History: Not Applicable ROS Dictation Constitutional: Positive for weakness and weight loss Eyes: Negative for injury, pain,redness, and discharge ENT: Negative for injury,pain or swelling Cardiovascular: Negative for chest pain, palpitations, and edema Respiratory: Positive for shortness of breath Abdomen/GI: Negative for abdominal pain, nausea, vomiting, diarrhea, and constipation Back: Negative for injury and pain : Negative for injury, bleeding and discharge MS/Extremity: Negative for injury and deformity Skin: Negative for rash, and discoloration Neuro: Negative for headache, weakness, numbness, tingling, and seizure Psych: Negative for suicide ideation, homicidal ideation, and hallucinations Physical Exam Physical Exam Dictation General: Frail-appearing elderly female Head/Face: Normocephalic, atraumatic Eyes: PERRL, EOMI, vision at baseline ENT: Dry mucous membranes Neck: Trachea midline, supple Cardiovascular: Bradycardic normal S1-S2 Respiratory: Diminished breath sounds bilaterally Abdomen: Soft, non-tender, non-distended, normal bowel sounds, no guarding or rebound. Skin: Warm, dry, normal turgor, no rash MS/Extremity: Pulses equal, no cyanosis Neuro: COAx4, GCS 15, strength 5/5, CN 2-12 intact Results Laboratory and Microbiology Lab and Micro Result Laboratory Tests Test 05/29/24 19:09 05/29/24 19:20 05/29/24 20:52 White Blood Count 9.4 K/uL (4.8-10.8) Red Blood Count 3.67 MIL/uL (4.00-5.50) L Hemoglobin 11.2 g/dL (12.0-16.0) L Hematocrit 34.7 % (36-48) L Mean Corpuscular Volume 94.6 fL (79-99) Mean Corpuscular Hemoglobin 30.5 pg (27.0-33.0) Mean Corpuscular Hemoglobin Concent 32.3 g/dL (32.0-36.0) Red Cell Distribution Width 15.3 % (11.0-15.5) Platelet Count 212 K/uL (130-400) Mean Platelet Volume 11.3 fL (7.5-10.5) H Immature Granulocyte % (Auto) 0.3 % (0-1) Neutrophils (%) (Auto) 78.4 % (40.0-77.0) H Lymphocytes (%) (Auto) 13.3 % (21.0-51.0) L Monocytes (%) (Auto) 6.1 % (3.0-13.0) Eosinophils (%) (Auto) 1.4 % (0.0-8.0) Basophils (%) (Auto) 0.5 % (0.0-5.0) Neutrophils # (Auto) 7.4 K/uL (1.8-7.7) Lymphocytes # (Auto) 1.3 K/uL (1.0-4.8) Monocytes # (Auto) 0.6 K/uL (0.1-1.0) Eosinophils # (Auto) 0.13 K/uL (0.00-0.70) Basophils # (Auto) 0.05 K/uL (0.00-0.20) Absolute Immature Granulocyte (auto 0.03 K/uL (0-1) Nucleated Red Blood Cells 0.0 % (0.0-0.19) Prothrombin Time 10.0 SEC (9.6-11.6) Prothromb Time International Ratio <= 0.93 (0.85-1.15) Activated Partial Thromboplast Time 24.8 SEC (26.3-35.5) L Sodium Level 134 mmol/L (136-145) L Potassium Level 4.9 mmol/L (3.5-5.1) Chloride Level 101 mmol/L (101-111) Carbon Dioxide Level 27 mmol/L (21-32) Blood Urea Nitrogen 36 mg/dL (7-18) H Creatinine 1.0 mg/dL (0.5-1.0) Glomerular Filtration Rate Calc 55 mL/min (>90) Random Glucose 99 mg/dL (70-105) Total Calcium 8.9 mg/dL (8.5-10.1) Magnesium Level 2.40 mg/dL (1.80-2.40) Total Creatine Kinase 109 U/L (21-232) # Troponin I High Sensitivity 10 ng/L (4-50) B-Type Natriuretic Peptide 122 pg/mL (0-100) H Influenza Type A Antigen Negative For Type A Influenza Type B Antigen Negative For Type B SARS-CoV-2, RNA, NAAT NEGATIVE SARS CoV-2 Urine Color COLORLESS (YELLOW) Urine Appearance CLEAR (CLEAR) Urine pH 7.0 (5.0-8.0) Urine Specific [place] 1.003 (1.001-1.031) Urine Protein NEGATIVE mg/dL (NEGATIVE) Urine Glucose (UA) NEGATIVE mg/dL (NEGATIVE) Urine Ketones NEGATIVE mg/dL (NEGATIVE) Urine Occult Blood NEGATIVE (NEGATIVE) Urine Nitrate NEGATIVE (NEGATIVE) Urine Bilirubin NEGATIVE mg/dL (NEGATIVE) Urine Urobilinogen 0.2 mg/dL (0.2-1.0) Urine Leukocyte Esterase NEGATIVE Scott/uL Urine RBC None /HPF (0-1) Urine WBC None /HPF (0-1) Urine Bacteria None /HPF (None Seen) MDM Patient has a improvement in his willing the eat with administration of IV fluids. Patient will be discharged review of labs and imaging is unremarkable for acute pathology MDM: Differential diagnosis: Dehydration Rationale: Tests considered and ordered secondary to shared decision making include: Previous outside records reviewed: Old ER visits. Risk of complication and/or morbidity or mortality of patient management: None Medications-Per medication reconciliation Need for hospitalization: Patient does not meet criteria for hospitalization. Need for emergency major/minor surgery: No There are no social concerns with this patient. Prescription drug management Prescriptions will include symptomatic care Patient's prior external medical records from other ER visits were reviewed by me as indicated. Prior testing and results from previous visits were reviewed. Prior tests were taken into account with medical decision making and resource utilization, independent historian/historians were used to obtain complete medical history. I independently interpreted the test that were performed, results were reviewed by me and considered findings on radiology if ordered. Medical management and examination interpretation discussions were had by me with other qualified healthcare professionals as indicated for the patient's care. ED Course Orders Procedure Category Date Status Time 12 Lead Ekg Tracing- EKG 05/29/24 Logged Technical 18:31 Chest 1vw RAD 05/29/24 Resulted 18:31 Cbc With Differential LAB 05/29/24 Complete 18:45 Prothrombin Time With LAB 05/29/24 Complete INR 18:45 B-Type Natriuretic LAB 05/29/24 Complete Peptide 18:45 Magnesium LAB 05/29/24 Complete 18:45 Creatine Kinase, Total LAB 05/29/24 Complete 18:45 Troponin I High LAB 05/29/24 Complete Sensitivity 18:45 Urinalysis Profile LAB 05/29/24 Complete 18:45 Partial LAB 05/29/24 Complete Thromboplastin Time 18:45 Basic Metabolic Panel LAB 05/29/24 Complete 18:45 Covid Rna Naat LAB 05/29/24 Complete 18:45 Influenza Type A & B, LAB 05/29/24 Complete Rapid 18:45 0.9%Nacl 1000ml (Ns PHA 05/29/24 In Process 1000ml) 19:30 Ct Abdomen/Pelvis CT 05/29/24 Resulted W/Contrast 20:49 Iohexol (Omnipaque) PHA 05/29/24 Complete 20:56 Current Medications Medications (Trade) Dose Ordered Sig/Caitie Route PRN Reason Start Time Stop Time Status Last Admin Dose Admin Iohexol (Omnipaque) 75 ml STK-MED ONCE IV 05/29/24 20:56 05/29/24 20:56 DC Sodium Chloride 1,000 ml @ 0 mls/hr Q0M IV 05/29/24 19:30 06/28/24 19:29 05/29/24 19:32 Vital Signs Date Time Temp Pulse Resp B/P (MAP) Pulse Ox O2 Delivery O2 Flow Rate FiO2 05/29/24 19:50 98.2 58 17 130/56 99 Room Air* 0 21 05/29/24 19:00 97.9 56 16 130/56 99 Room Air* 0 21 05/29/24 18:27 97.9 65 16 145/68 99 Room Air 0 DX & DISP Disposition: Discharge Departure Impression: Primary Impression: Dehydration Condition: Stable Additional Instructions: Please follow up with your primary care physician in the next 1-7 days for continuance of care. Please continue to drink 1-2 L of fluid today. Referrals: WILL BIGGS MD (PCP) BERTO MART MD May 29, 2024 19:21
[2024-05-29 19:28] LABS: POTASSIUM 4.9 mmol/L (3.5-5.1)
[2024-05-29 19:29] LABS: INR <= 0.93 (0.85-1.15)
[2024-05-29 19:31] LABS: PARTIAL THROMBOPLASTIN TIME 24.8 SEC (26.3-35.5)
[2024-05-29] MEDS: 0.9%NACL 1000ML 1,000 ML IV SCH (19:32)
[2024-05-29 19:33] LABS: MAGNESIUM 2.4 mg/dL (1.80-2.40)
[2024-05-29 19:45] LABS: B-TYPE NATRIURETIC PEPTIDE 122 pg/mL (0-100)
[2024-05-29 19:46] LABS: SARS-CoV-2, RNA, NAAT NEGATIVE SARS CoV-2 (NEGATIVE)
[2024-05-29 19:52] LABS: INFLUENZA TYPE A Negative For Type A (NEGATIVE); INFLUENZA TYPE B Negative For Type B (NEGATIVE)
[2024-05-29] MEDS ORDERED: TIZA-194 PO (20:04)
[2024-05-29] MEDS ORDERED: AMLO-258 PO (20:04)
[2024-05-29] MEDS ORDERED: QUET25TA36 PO (20:04)
[2024-05-29] MEDS ORDERED: FAMO20TA8 PO (20:04)
[2024-05-29] MEDS ORDERED: TRAMADOL HCL PO (20:04)
[2024-05-29] MEDS ORDERED: ALBU2.5V2 NEB (20:04)
--- NOTE | 2024-05-29 20:07 | HMCIMG ---
CHEST 1VW REASON: SOB COMPARISON: 08/31/2023 FINDINGS: Single view of the chest was obtained. Lungs are clear. Heart size is normal. There is no pulmonary vascular congestion. Mediastinum and bony thorax appear unremarkable. IMPRESSION: 1. Normal single view chest x-ray.
[2024-05-29] MEDS ORDERED: IOHEXOL-350 75 ML VIAL IV ONE (20:56)
[2024-05-29 21:03] LABS: APPEARANCE,URINE CLEAR (CLEAR); BILIRUBIN,URINE NEGATIVE (NEGATIVE); COLOR,URINE COLORLESS (YELLOW); GLUCOSE, URINE (UA) NEGATIVE (NEGATIVE); KETONES,URINE NEGATIVE (NEGATIVE); LEUKOCYTE ESTERASE ,URINE NEGATIVE Leu/uL (NEGATIVE); NITRATE,URINE NEGATIVE (NEGATIVE); OCCULT BLOOD,URINE NEGATIVE (NEGATIVE); PROTEIN,URINE NEGATIVE (NEGATIVE); UROBILINOGEN,URINE 0.2 mg/dL (0.2-1.0)
[2024-05-29 21:04] LABS: ADD UA MICROSCOPIC YES
--- NOTE | 2024-05-29 21:51 | HMCIMG ---
CT ABDOMEN/PELVIS W/CONTRAST REASON: weight loss COMPARISON: 08/28/2017 TECHNIQUE: Images are obtained from lung bases to symphysis pubis following IV contrast, 75 cc Omnipaque 350. FINDINGS: Lung bases are clear. There are no focal liver lesions. There are normal-appearing kidneys.. Spleen and pancreas appear unremarkable. There has been a previous cholecystectomy. There is there is moderate sigmoid diverticulosis without evidence of diverticulitis. Bowel loops appear otherwise unremarkable. This includes normal appearance of the appendix There is no evidence of free fluid or intraperitoneal air. There are no focal fluid collections. Aorta and retroperitoneum appear normal as do pelvic soft tissue structures. The anterior abdominal wall is intact. Osseous structures appear unremarkable. 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 IMPRESSION: 1. Moderate to marked diverticulosis of the sigmoid colon, there is no evidence of diverticulitis. 2. Absent gallbladder. 3. Otherwise unremarkable postcontrast CT abdomen and pelvis. CT was performed with one or more following dose reduction techniques: automated exposure control, adjustment of the mA and kv according to patient's size, or use of a iterative reconstruction technique.
[2024-05-29 22:32] VITALS: BP 136/55; PULSE 67; RESP 17; TEMP 98.2; O2SAT 97
--- NOTE | 2024-05-30 07:02 | EKG ---
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
== END 2024-05-29 22:38 | disposition home or self-care (01) ==
LOC: EDH 18:26
DX: E86.0 Dehydration (principal); F32.A Depression, unspecified; I10 Essential (primary) hypertension; J45.909 Unspecified asthma, uncomplicated; K21.9 Gastro-esophageal reflux disease without esophagitis; Z79.1 Long term (current) use of non-steroidal anti-inflammatories (NSAID); Z79.51 Long term (current) use of inhaled steroids; Z79.52 Long term (current) use of systemic steroids; Z88.1 Allergy status to other antibiotic agents; Z90.49 Acquired absence of other specified parts of digestive tract; Z90.710 Acquired absence of both cervix and uterus; Z20.822 Contact with and (suspected) exposure to COVID-19
CPT/HCPCS: 99285; 74177; 71045; 87635; 82550; 83735; 84484; 80048; 83880; 85025; 85610; 85730; 87804 ×2; 81001; 36415; 93005; J7030; Q9967